=== PATIENT | male | born 1955 | race Caucasian/White ===

== ENCOUNTER 2019-11-29 01:20 | Outpatient (CLI) | payer MEDICARE, BC, SELFPAY ==
[2019-11-29 19:18] LABS: SARS-CoV-2 RNA PCR Negative
== END 2019-11-29 01:21 | disposition home or self-care (01) ==
LOC: ANHCOVIDDT 01:20
PROVIDERS: PCP Family Medicine; Visit Provider Internal Medicine Gastroenterology
DX: Z01.818 Encounter for other preprocedural examination (principal); Z11.59 Encounter for screening for other viral diseases
CPT/HCPCS: 87635; C9803; U0003

== ENCOUNTER 2019-12-01 02:40 | Day surgery (SDC) | payer MEDICARE, BC, SELFPAY ==
[2019-11-23 13:25] VITALS: BMI 21.2
--- NOTE | 2019-12-01 07:45 | WPDANESEPPF ---
Anes - Initial Pre Proc Eval Procedure: Operation Date: 12/01/19 11:30 Proposed Procedures p Colonoscopy - Kwadwo Razo MD Date/Time: 12/01/19 07:45 Surgeon: Kwadwo Razo MD Pre Op Diagnosis: Hemorrhage of Anus And Rectum Patient Data Age: 64 Gender: M Height: 1.85 m Weight: 73 kg Allergies Allergy/AdvReac Type Severity Reaction Status Date / Time No Known Allergies Allergy Verified 11/23/19 13:24 Home Medications Medication Instructions Recorded Confirmed Type multivitamin 1 tablet PO DAILY 10/24/19 11/23/19 History peg 3350-electrolytes 236 240 ml PO Q10M #4000 ml 11/29/19 Rx gram-22.74 gram-6.74 gram-5.86 gram solution Patient hx anesthesia problems: none Family hx anesthesia problems: none PMF Past Medical History Medical History (Updated 11/06/19 @ 11:20 by Kwadwo Razo MD) Appendicitis Community acquired pneumonia Family history of colon cancer Lung mass Pneumonia Sepsis Umbilical hernia Surgical History Surgical History History of appendectomy Social History Social History Smoking status: Smoker, status unknown Alcohol intake: never Anes - Eval Final PreProcedure Day of Procedure 12/01/19 07:45 Patient weight: normal Heart: regular rate and rhythm Lungs: clear to auscultation and normal air movement Airway: Mallampati scale class II Neurological: alert and oriented Last oral intake: >/= 8 hours ASA classification: II Emergent: no Anesthetic plan: proceed Anesthesia type and monitoring: general GIVS Informed Consent: The patient's anesthetic plan and its attendant risks and benefits were discussed with the patient/family/POA. Questions were solicited and answers provided to the satisfaction of the patient/family/POA.
[2019-12-01] MEDS: LACTATED RINGERS 1,000 ML 150 ML IV CONT (10:46)
[2019-12-01 10:49] VITALS: BP 142/63; PULSE 55; RESP 18; TEMP 36.6; O2SAT 100
--- NOTE | 2019-12-01 11:08 | WPDHPUPDATE1 ---
History and Physical Update Update Date/Time: 12/01/19 11:08 History and Physical has been reviewed, including an updated exam of the patient. There are NO changes in the patient's condition. Risks, benefits, and alternatives have been discussed and questions answered. Patient agrees to proceed with procedure.
[2019-12-01 11:46] VITALS: BP 103/61; PULSE 68; RESP 16; O2SAT 97
[2019-12-01 11:56] VITALS: BP 107/68; PULSE 66; RESP 21; O2SAT 97
[2019-12-01 12:00] VITALS: BP 112/66; PULSE 68; RESP 25; O2SAT 99
== END 2019-12-01 12:18 | disposition home or self-care (01) ==
PROVIDERS: PCP Family Medicine; Visit Provider Internal Medicine Gastroenterology
PROC: 0DJD8ZZ Inspection of Lower Intestinal Tract, Via Natural or Artificial Opening Endoscopic (ICD-10-PCS; CPT 45378; principal; 2019-12-01 11:30)
DX: K62.5 Hemorrhage of anus and rectum (principal); D12.3 Benign neoplasm of transverse colon; K57.30 Diverticulosis of large intestine without perforation or abscess without bleeding; K64.8 Other hemorrhoids
CPT/HCPCS: 45385; 88305; J2001; J2704; J7120

== ENCOUNTER 2022-07-17 10:27 | Outpatient (CLI) | payer MEDICARE, SELFPAY ==
--- NOTE | ~2022-07-17 | CT_ITS ---
CT Scan of the Chest without Contrast: Clinical Indication: Lung cancer screening, tobacco abuse Technique: Contiguous sections were acquired throughout the chest without intravenous contrast. Dose reduction technique was used on this scan by utilizing automated exposure control and iterative recon struction technique. The dose-length product (DLP) was 104.72 mGy-cm. COMPARISON: 04/07/2019 Findings: There is no evidence of any significant mediastinal, hilar or axillary lymphadenopathy. There are ath erosclerotic calcifications of the aorta. Mild coronary artery calcifications are present. There is no evidence of pleural or pericardial effusion. Stable subcentimeter pleural-based nodule in the anterior right upper lobe (axial image 66). Minimal biapical scarring noted. Images through the upper abdomen reveal no abnormalities. Impression: Lung-RADS 2: Benign appearance. [address] advised[address] Reviewed, dictated and finalized at [facility]. Impression: Lung-RADS 2: Benign appearance. [address] advised.
== END 2022-07-17 10:28 | disposition home or self-care (01) ==
PROVIDERS: PCP Emergency Medicine; Visit Provider Emergency Medicine
DX: Z12.2 Encounter for screening for malignant neoplasm of respiratory organs (principal); F17.210 Nicotine dependence, cigarettes, uncomplicated
CPT/HCPCS: 71271

== ENCOUNTER → 2022-11-20 08:54 | Outpatient (CLI) | payer MEDICARE, SELFPAY ==
--- NOTE | ~2022-11-20 | US_ITS ---
EXAMINATION: US aorta [facility] DATE: 11/20/2022 09:06 INDICATION: Abdominal aortic aneurysm screening. TECHNIQUE: Grayscale, color Doppler, and pulsed Doppler images of the aorta and common iliac arteries were obtained. COMPARISON: None. FINDINGS: The aorta is normal in caliber. The right common iliac artery is normal in caliber. The left common i liac artery is normal in caliber. IMPRESSION: 1. No abdominal aortic aneurysm. Reviewed, dictated and finalized at location A.
== END ==
PROVIDERS: PCP Emergency Medicine; Visit Provider Emergency Medicine
DX: Z72.0 Tobacco use (principal)
CPT/HCPCS: 76706